=== PATIENT | female | born 1985 | race Caucasian/White ===

== ENCOUNTER 2016-04-04 11:25 | Emergency (ER) | payer OTHER ==
[2016-04-04 11:45] VITALS: BP 101/64
--- NOTE | 2016-04-04 15:05 | UC ---
Throat Pain/Nasal Kei HPI - HPI Summary HPI Summary: cough, congestion, sinus pressure. Son has culture proven strep. No fever. Pt with deviated septum, frequent sinus infections. Sees Dr. Olivier, who wanted to do surgery and pt did not have it. - History of Current Complaint Chief Complaint: UCRespiratory Stated Complaint: RESPIRATORY COMPLAINT Time Seen by Provider: 04/04/16 11:49 Hx Obtained From: Patient Hx Last Menstrual Period: 03/28/16 ?: No Onset/Duration: Gradual Onset, Lasting Days, Still Present Severity: Moderate Pain Intensity: 8 Pain Scale Used: 0-10 Numeric Cough: Nonproductive Associated Signs & Symptoms: Positive: Hoarseness, Sinus Discomfort, Nasal Discharge - Epiglottits Risk Factors Epiglottis Risk Factors: Negative - Allergies/Home Medications Allergies/Adverse Reactions: Allergies Allergy/AdvReac Type Severity Reaction Status Date / Time Latex Allergy Intermediate Hives Verified 04/16/15 19:29 Penicillins Allergy Intermediate Hives Verified 04/16/15 19:29 environmental Allergy Sneezing Uncoded 04/04/16 11:40 PMH/Surg Hx/FS Hx/Imm Hx Endocrine History Of: Reports: Thyroid Disease - hyper to hypo - Surgical History Surgical History: Yes Surgery Procedure, Year, and Place: tubal ligation, ear tubes x 2 sets - Family History Known Family History: Positive: Hypertension - Social History Occupation: Employed Full-time Lives: With Family Alcohol Use: Rare Substance Use Type: None Smoking Status (MU): Light Every Day Tobacco Smoker Type: Cigarettes Amount Used/How Often: 1/2 ppd Length of Time of Smoking/Using Tobacco: 15 yrs Review of Systems Constitutional: Negative Skin: Negative Eyes: Negative ENT: Sore Throat, Nasal Discharge, Other - sinus pressure Respiratory: Cough Cardiovascular: Negative Gastrointestinal: Negative Genitourinary: Negative Motor: Negative Neurovascular: Negative Musculoskeletal: Negative Neurological: Negative Psychological: Negative All Other Systems Reviewed And Are Negative: Yes Physical Exam Triage Information Reviewed: Yes Appearance: Well-Nourished, Ill-Appearing, Pain Distress Vital Signs: Initial Vital Signs Temp 98.5 F 04/04/16 11:31 Pulse 84 04/04/16 11:31 Resp 18 04/04/16 11:31 BP 101/64 04/04/16 11:31 Pulse Ox 99 04/04/16 11:31 Vital Signs Reviewed: Yes Eyes: Positive: Conjunctiva Clear ENT: Positive: Pharyngeal erythema, TMs normal, Other: - sinus tenderness Neck: Positive: Supple Respiratory: Positive: Lungs clear, Normal breath sounds, No respiratory distress Cardiovascular: Positive: RRR, Pulses Normal, Brisk Capillary Refill Musculoskeletal: Positive: Strength Intact, ROM Intact Neurological: Positive: Alert, Muscle Tone Normal Psychological Exam: Normal Skin Exam: Normal Throat Pain/Nasal Course/Dx - Differential Dx/Diagnosis Differential Diagnosis/HQI/PQRI: Otitis Media, Pharyngitis, Sinusitis, URI Provider Diagnoses: sinusitis Discharge - Discharge Plan Condition: Stable Disposition: HOME Prescriptions: Azithromycin TAB* [Zithromax TAB (Z-KRISTIE) 250 mg #6 tabs] 2 tab PO .TODAY, THEN 1 DAILY #1 [email or web address] Patient Education Materials: Sinusitis (ED) Forms: *Work Release Referrals: KATH Mauricio [Primary Care Provider] -
== END 2016-04-04 12:15 | disposition home or self-care (01) ==
LOC: UCCORT 11:25
DX: J32.9 Chronic sinusitis, unspecified (principal); Z88.0 Allergy status to penicillin; F17.210 Nicotine dependence, cigarettes, uncomplicated
CPT/HCPCS: 99212; G0463